=== PATIENT | male | born 1995 | race Caucasian/White ===

== ENCOUNTER → 2018-05-28 | Outpatient (CLI) | payer BC, MEDICAID ==
--- NOTE | 2018-05-29 15:25 | EEG ---
DATE OF SERVICE: 05/28/2018 EEG NUMBER: [id number] OBJECTIVE: This is a 22-year-old male patient with a history of mitochondrial disease. He has seizure or seizure-like episodes recently and behavior changes. EEG was requested to evaluate seizure activity. METHODS: Twenty electrodes were applied according to the international 10-20 electrode placement system. EKG monitoring, hyperventilation, intermittent photic stimulation, monopolar and bipolar montages are routinely utilized. The record was obtained on a digital system with video monitoring. MEDICATIONS: No anti-seizure medication. FINDINGS: 1. Background: The patient was recorded in the awake and drowsy state. No actual sleep state was recorded. The overall background amplitude is 5-15 microvolts. A posterior dominant rhythm of 8-10 Hz is observed. 2. Abnormalities: No specific epileptiform discharge or electrographic seizure is seen. No focal or diffuse slowing. 3. Activation: Hyperventilation was not performed because the patient was unable to follow the commands. Intermittent photic stimulation was performed with photic driving. No specific epileptiform discharge or electrographic seizure induced by intermittent photic stimulation. IMPRESSION: This EEG is within normal limits of the study for the awake and drowsy states. No actual sleep state was recorded. No focal, lateralizing, specific epileptiform discharge or electrographic seizure is seen. SUGGEST: Suggest long-term video EEG monitoring for seizure or seizure-like episodes. STELLA VALE MD DR: [email or web address]/[email or web address] JOB#: [id number] / [id number]
== END | disposition home or self-care (01) ==
LOC: RT 13:08
PROVIDERS: ATTEND Psychiatry & Neurology Neurology
DX: G40.909 Epilepsy, unspecified, not intractable, without status epilepticus (principal)
CPT/HCPCS: 95816

== ENCOUNTER → 2018-06-25 | Outpatient (CLI) | payer BC, MEDICAID ==
--- NOTE | 2018-06-27 16:08 | PDOC ---
PROGRESS NOTES Assessment Assessment IMPRESSION: Seizure? . Mitochondrial disease. RECOMMENDATIONS/PLAN: LTM VEEG 24-48 hours. SUBJECTIVE: Unable to communicate. OBJECTIVE: No clinical seizures noted. PAST MEDICAL AND SURGICAL HISTORY: Please see H&P in out-patient documentation. ALLERGY: Unknown MEDICATIONS: Refer to MAR REVIEW OF SYSTEMS: Constitutional: No malnutrition, weight loss, cachexia. Head: No traumatic brain or head injury. Skin: No edema, or rash. Ear: No infection. Eyes: No vision loss, or diplopia. Nose: No bleeding or purulent discharges. Hearing: No hearing decrease. Neck: No injury. Cardiac: No OK, arrhythmia, CAD, s/p CABG, AFib, Pacemaker Placement, HTN, HLD Pulmonary: No pneumonia, COPD. GI: No GI Ulcer, GI bleeding, GERD Urinary/genital: No dysuria, incontinence, urinary retention. Endocrine: No cousin face, craniofacial dysmorphism, polydactyly. Skeletomuscular: No muscular atrophy. Neurological: see HP. Psychiatric: Denies drug use/abuse. Otherwise, not [id number] review of systems. PHYSICAL EXAMINATION: General appearance in no acute distress. HEENT: Normocephalic and nontraumatic. Eyes, nose, ears, and throat are unremarkable. Neck is supple. No lymphadenopathy. No bruits are heard over the carotid artery. No Crepitus. Cardiovascular: S1, S2, regular rate and rhythm. Pulmonary: Clear to auscultation bilaterally. Abdomen: Bowel sounds are positive. Abdomen is soft, nontender, and nondistended. Extremities: No rash, lesions, or edema. No restriction of range of motion NEUROLOGICAL EXAMINATION: Awake. Unable to communicate. Not oriented to time, place and person. PERRL. EOMI. CN: no focal findings. Muscle tone: within normal. Muscle strength: 5 DTR: 2 Plantar reflex: Flexor response bilaterally Gait: At baseline normal. Sensory exam: no abnormal findings. No acute cerebellar signs elicited. F-T-N test fine. Comment Review of Relevant I have reviewed the following items yulia (where applicable) has been applied. STELLA VALE MD Jun 27, 2018 16:08
--- NOTE | 2018-06-27 16:10 | PDOC ---
PROGRESS NOTES Assessment Assessment Neurology Progress Note 06-25-2018 Seizure? MR. Mitochondrial disease. RECOMMENDATIONS/PLAN: LTM VEEG 24-48 hours. SUBJECTIVE: Unable to communicate. OBJECTIVE: Patient was noted by his mother and grandmother to have staring spells and space out. His routing EEG did not catch seizure activity, so LTM VEE was requested. He was brought in this study. PAST MEDICAL AND SURGICAL HISTORY: Please see H&P in out-patient documentation. ALLERGY: Unknown MEDICATIONS: Refer to MAR REVIEW OF SYSTEMS: Constitutional: No malnutrition, weight loss, cachexia. Head: No traumatic brain or head injury. Skin: No edema, or rash. Ear: No infection. Eyes: No vision loss, or diplopia. Nose: No bleeding or purulent discharges. Hearing: No hearing decrease. Neck: No injury. Cardiac: No OR, arrhythmia, CAD, s/p CABG, AFib, Pacemaker Placement, HTN, HLD Pulmonary: No pneumonia, COPD. GI: No GI Ulcer, GI bleeding, GERD Urinary/genital: No dysuria, incontinence, urinary retention. Endocrine: No cousin face, craniofacial dysmorphism, polydactyly. Skeletomuscular: No muscular atrophy. Neurological: see HP. Psychiatric: Denies drug use/abuse. Otherwise, not [id number] review of systems. PHYSICAL EXAMINATION: General appearance in no acute distress. HEENT: Normocephalic and nontraumatic. Eyes, nose, ears, and throat are unremarkable. Neck is supple. No lymphadenopathy. No bruits are heard over the carotid artery. No Crepitus. Cardiovascular: S1, S2, regular rate and rhythm. Pulmonary: Clear to auscultation bilaterally. Abdomen: Bowel sounds are positive. Abdomen is soft, nontender, and nondistended. Extremities: No rash, lesions, or edema. No restriction of range of motion NEUROLOGICAL EXAMINATION: Awake. Unable to communicate. Not oriented to time, place and person. PERRL. EOMI. CN: no focal findings. Muscle tone: within normal. Muscle strength: 5 DTR: 2 Plantar reflex: Flexor response bilaterally Gait: At baseline normal. Sensory exam: no abnormal findings. No acute cerebellar signs elicited. F-T-N test fine. Comment Review of Relevant I have reviewed the following items yulia (where applicable) has been applied. STELLA VALE MD Jun 27, 2018 16:10
--- NOTE | 2018-06-28 19:14 | EEG ---
DATE OF SERVICE: 06/25/2018 ELECTROENCEPHALOGRAM DATE: 06/25/2018 to 06/26/2018 ELECTROENCEPHALOGRAM NUMBER: [id number]. OBJECTIVE: This 22-year-old male patient has history of mitochondrial disease with mental retardation. He was noted seizure or seizure-like episodes as staring spells and spacing out. EEG was requested to evaluate seizure activity. This is a long-term video EEG study with total video monitoring and the EEG recording time of 25 hours and 3 minutes from 06/25/2018 to 06/26/2018. METHODS: Twenty electrodes were applied according to the international 10-20 electrode placement system. EKG monitoring, hyperventilation, intermittent photic stimulation, monopolar and bipolar montages are routinely utilized. The record was obtained on a digital system with video monitoring. FINDINGS: 1. Background: The patient was recorded in the awake, drowsy, and sleep states. The overall background amplitude is 5-15 microvolts. A posterior dominant rhythm of 8-12 Hz is observed. 2. Abnormalities: No specific epileptiform discharge or electrographic seizure is seen. No focal or diffuse slowing. Significant eye blinking movements noted during awake state. 3. Activation: Hyperventilation was not performed because the patient was unable to follow the commands. Intermittent photic stimulation was performed with photic driving. No specific epileptiform discharge or electrographic seizure induced. IMPRESSION: This is a long-term video electroencephalogram study with total video monitoring and electroencephalogram recording time of 25 hours and 3 minutes from 06/25/2018 to 06/26/2018. This long-term video electroencephalogram study is a borderline study for the awake, drowsy, and sleep states. Frequent eye blinking movements during awake state are significant. No focal, lateralizing, specific epileptiform discharge, or electrographic seizure is seen. STELLA VALE MD DR: SHASTA/[email or web address] JOB#: [id number] / [id number] WENDIE
== END | disposition home or self-care (01) ==
LOC: SLPLAB 07:27
PROVIDERS: ATTEND Psychiatry & Neurology Neurology
DX: E88.40 Mitochondrial metabolism disorder, unspecified (principal)
CPT/HCPCS: 95951